=== PATIENT | female | born 1980 | race Caucasian/White ===

== ENCOUNTER 2024-03-31 09:41 | Emergency (ER) | payer BC ==
[~2024-03-31] VITALS: Ht 165.1 cm; Wt 88.5 kg
[2024-03-31 09:48] VITALS: BP_SYST 137; PULSE 92; RESP 18; TEMP 98.3; O2SAT 97
[2024-03-31] MEDS: CYCLOBENZAPRINE HCL 10 MG TABLET (FLEXERIL) PO ONE (10:12)
[2024-03-31] MEDS: ACETAMINOPHEN 325 MG TABLET PO ONE (10:13)
[2024-03-31] MEDS: KETOROLAC TROMETHAMINE 30 MG VIAL IM ONE (10:13)
[2024-03-31] MEDS: LIDOCAINE PATCH 5% 1 EA TP ONE (10:13)
[2024-03-31] MEDS ORDERED: CYCL10TA24 PO (11:26)
[2024-03-31] MEDS ORDERED: LIDO1ADH22 TP (11:26)
[2024-03-31 11:35] VITALS: BP_SYST 137; PULSE 92; RESP 18; TEMP 98.3; O2SAT 97
== END 2024-03-31 11:36 | disposition home or self-care (01) ==
LOC: SED 09:41
DX: S39.012A Strain of muscle, fascia and tendon of lower back, initial encounter (principal); S80.02XA Contusion of left knee, initial encounter; E11.9 Type 2 diabetes mellitus without complications; Z79.899 Other long term (current) drug therapy; Z79.2 Long term (current) use of antibiotics; W18.39XA Other fall on same level, initial encounter; Y93.89 Activity, other specified; Y92.89 Other specified places as the place of occurrence of the external cause; Y99.8 Other external cause status
CPT/HCPCS: 99284; 73564; 81025; 96372; J1885